=== PATIENT | female | born 2000 | race Hispanic/Latino ===

== ENCOUNTER 2023-08-16 23:42 | Observation (INO) | payer OTHER, SELFPAY ==
[2023-08-17] MEDS ORDERED: Acetaminophen 325 MG TAB PO PRN (02:52)
[2023-08-17] MEDS ORDERED: Ondansetron PF 4 MG/2 ML Vial IVP PRN (02:52)
[2023-08-17 03:42] LABS: #Monocytes 0.7 thou/uL (0.11-0.59); #Neutrophils 6.9 thou/uL (1.40-6.50); %Basophils 0.4 % (0.0-1.0); %Eosinophils 0.3 % (0.0-10.0); %Lymphocytes 23.7 % (21.0-51.0); %Monocytes 6.9 % (0.0-10.0); %Neutrophils 68.3 % (42.0-75.0); Hematocrit 45.3 % (36.0-47.0); Hemoglobin 15.2 g/dL (12.0-16.0); Mean Corpuscular HGB CONC 33.6 g/dL (32.0-36.0); Mean Corpuscular Hemoglobin 29.6 pg (27.0-31.0); Mean Corpuscular Volume 88.3 fl (78.0-98.0); Mean Platelet Volume 9.6 fL (7.4-10.4); Platelet Count 313 10x3/uL (130-400); RBC Distribution Width 12.7 % (11.5-14.5); Red Blood Cell (RBC) Count 5.13 mill/uL (4.20-5.40)
[2023-08-17 04:32] LABS: Anion Gap 16 mmol/L (10-20); BUN (Urea Nitrogen) 19 mg/dL (7.0-18.7); Calc. Creatinine Clearance 0 mL/min (70-130); Calcium 9.6 mg/dL (7.8-10.44); Carbon Dioxide 20 mmol/L (22-29); Chloride 113 mmol/L (98-107); Estimated GFR 103; Glucose 72 mg/dL (70-105); Sodium 145 mmol/L (136-145)
[2023-08-17 04:39] VITALS: BMI 23.6
[2023-08-17] MEDS: Sodium Chloride 0.9% 1,000 ML IV SCH (04:41)
[2023-08-17] MEDS: Famotidine/PF 20 mg/2ml Vial SLOW IVP SCH (08:53)
[2023-08-17] MEDS ORDERED: FLU VACC QS2023-24(6MOS UP)/PF 60 MCG/0.5 ML SYRINGE IM ONE (09:00)
[2023-08-17] MEDS ORDERED: Dexamethasone 4 mg/ml Vial ONE (10:07)
[2023-08-17] MEDS ORDERED: Dexmedetomidine 200 MCG/2 ML VIAL ONE ×2 (10:07)
[2023-08-17] MEDS ORDERED: PROPOFOL 40 ML ONE (10:07)
[2023-08-17] MEDS ORDERED: Ondansetron PF 4 MG/2 ML Vial ONE (10:07)
[2023-08-17] MEDS ORDERED: SUGAMMADEX SODIUM 200 MG/2 ML VIAL ONE (10:08)
[2023-08-17] MEDS ORDERED: fentaNYL 50 mcg/mL 1 mL Vial ONE (10:35)
[2023-08-17] MEDS ORDERED: Promethazine HCl 25 MG/ML VIAL IM PRN (10:49)
[2023-08-17] MEDS ORDERED: Ketorolac Tromethamine 30 MG/ML VIAL IVP PRN ×2 (10:49)
[2023-08-17] MEDS ORDERED: Ondansetron HCl/PF 4 MG/2 ML Vial IVP PRN (10:49)
[2023-08-18] MEDS: Pantoprazole 40 MG VIAL IVP SCH (08:46)
[2023-08-18] MEDS ORDERED: E-Z-HD 98% W/W 340GM BOT (x-ray ONLY) ONE (08:54)
[2023-08-18] MEDS ORDERED: Barium Sulfate 96% 176 GM BOT (xray ONLY) ONE (08:54)
[2023-08-18 15:39] VITALS: BP 113/78; TEMP 98.2
== END 2023-08-18 18:05 | disposition home or self-care (01) ==
LOC: ERS 23:42 → SURG A 08-17 03:44
PROVIDERS: ADMIT Student in an Organized Health Care Education/Training Program; ATTEND Family Medicine
PROC: 0DC58ZZ Extirpation of Matter from Esophagus, Via Natural or Artificial Opening Endoscopic (ICD-10-PCS; principal; 2023-08-18)
PROC: 0DB38ZX Excision of Lower Esophagus, Via Natural or Artificial Opening Endoscopic, Diagnostic (ICD-10-PCS; 2023-08-18)
DX: T18.128A Food in esophagus causing other injury, initial encounter (principal); K22.5 Diverticulum of esophagus, acquired; K22.0 Achalasia of cardia; J45.909 Unspecified asthma, uncomplicated; Z88.0 Allergy status to penicillin; W44.F3XA Food entering into or through a natural orifice, initial encounter
CPT/HCPCS: 36415; 74220; 80048; 85025; 88305; 96374; 96375; C9113; G0378; J1100; J2405; J2704; J3010; J7050; S0028